=== PATIENT | female | born 1995 | race African-American/Black ===

== ENCOUNTER 2020-06-17 18:09 | Emergency (ER) | payer OTHER ==
--- OUTSIDE RECORDS SUMMARY | 2020-06-17 18:11 | XMS REPORT | Clinical Summary ---
:1995 Author Organization [facility] Dist[facility] ict Address [address] [place] [id number] Care Team Providers Name Role Phone Unavailable Primary Care Provider Unavailable Allergies No Known Allergies Medications Medication Sig Dispensed Refills Start Date End Date Status citalopram (CELEXA) 20 Take 0.5 tablets 30 tablet 1 05/24/2017 Active mg tabletIndications: by mouth daily X 2 Panic attack wks then increase to 1 tab po daily. hydrOXYzine (ATARAX) Take 1 tablet by 30 tablet 0 05/24/2017 Active 25 mg mouth 3 times tabletIndications: daily as needed Panic attack for Anxiety. Active Problems No known active problems Encounters Date Type Specialty Care Team Description 05/29/2020 Office Visit Hector Onofre A Generalized anx iety disorder (Primary Dx); Alcohol use dis order, mild, abuse 05/14/2020 Telephonic Encounter Hector Onofre A General ized anxiety disorder (Primary Dx) 04/18/2020 Telemedicine Hector Onofre A Generalized anx iety disorder (Primary Dx) 04/16/2020 Telephonic Encounter Hector Onofre A No Show after 06/17/2019 Immunizations Name Administration Dates Next Due Influenza Vaccine 10/23/2015 Tdap Tetanus, diphtheria, acellular pertussis Vaccine 2015 Family History Medical History Relation Name Comments Cancer Maternal Aunt multiple aunts, dx'ed in their 50's Relation Name Status Comments Brother Alive Father Alive Maternal Aunt Mother Alive Sister Alive Social History Tobacco Use Types Packs/Day Years Used Date Never Smoker Smokeless Tobacco: Never Used Tobacco Cessation: Counseling Given: No Comments: Avoidance of second-hand smoke during and after Alcohol Use Drinks/Week oz/Week Comments No 0 Standard drinks or equivalent 0.0 Food Insecurity Answer Date Recorded Within the past 12 months, you worried that your food would Never true 05/23/2017 run out before you got money to buy more. Within the past 12 months, the food you bought just didn't N ever true 05/23/2017 last and you didn't have money to get more. Sex Assigned at Date Recorded Not on file Job Start Date Occupation Industry Not on file Not on file Not on file Travel History Travel Start Travel End No recent travel history available. COVID-19 Exposure Response Date Recorded In the last month, have you been in contact with No / Unsure 05/29/2020 8:48 AM CDT someone who was confirmed or suspected to have Coronavirus / COVID-19? Last Filed Vital Signs Not on file Plan of Treatment Date Type Specialty Care Team Description 07/08/2020 Office Visit Psychology Hector Rodriguez [facility] [place] [facility] [address] [phone] Health Maintenance Due Date Last Done Comments Cervical Cancer Scrn (3 Yrs) 2016 IMM Influenza Seasonal May to October (>/= 19 yrs) 05/22/2020 10/23/2015 Results Not on fileafter 06/17/2019 Insurance Payer Benefit Plan Subscriber ID Effective Dates Phone Address Type / Group [place] MED[place] [id number] [facility] xxxxxxxxx 2020-Presjeanie [id number] [place] [address]
--- OUTSIDE RECORDS SUMMARY | 2020-06-17 18:11 | XMS REPORT | Clinical Summary ---
:1995 Author Organization [facility] Address [address] [place] [address] Care Team Providers Name Role Phone Asked, No Pcp Primary Care Provider Unavailable Allergies No Known Active Allergies Medications No known medications Active Problems No known active problems Immunizations Name Administration Dates Next Due Tdap 04/20/2019 Surgical History Surgery Date Site/Laterality Comments NO PAST SURGERIES Medical History Medical History Date Comments Anxiety Family History Medical History Relation Name Comments No Known Problems Father No Known Problems Mother Relation Name Status Comments Father Mother Social History Tobacco Use Types Packs/Day Years Used Date Current Every Day Smoker Cigarettes Smokeless Tobacco: Never Used Comments: 2 cig a day Alcohol Use Drinks/Week oz/Week Comments Yes 7 Shots of liquor 7.0 Sex Assigned at Date Recorded Not on file Last Filed Vital Signs Not on file Plan of Treatment Health Maintenance Due Date Last Done Comments CERVICAL CANCER SCREENING 2016 INFLUENZA VACCINE 03/22/2020 Results Not on fileafter 06/17/2019 Advance Directives For more information, please contact: [phone] 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
--- OUTSIDE RECORDS SUMMARY | 2020-06-17 18:12 | XMS REPORT | Continuity of Care Document ---
:1995 Author Organization [facility] t Address [address] [place] [address] Care Team Providers Name Role Phone Asked, Pcp Primary Care Physician Unavailable Shayla Rodriguez Attending Clinician Payers Payer Name Policy Type Policy Number Effective Date Expiration Date S emmie [place] xxxxxxxxx 2020 [facility] MEDICAIDTP01 00:00:00 TANF [place]RAHAM GRANTxxxxxxxx x2020-Pre [phone] [id number], [place] [address] Problems This patient has no known problems. Allergies, Adverse Reactions, Alerts This patient has no known allergies or adverse reactions. Family History Family Member Diagnosis Comments Start Date Stop Date Source Natural father No Known Problems Keena brian Tenriism Natural mother No Known Problems Keena Elizondo Maternal aunt Cancer [facility] Social History Social Habit Start Date Stop Date Quantity Comments Source History of Cigarette Smoker [facility] tobacco use Sex Assigned At [facility] Exposure to Not sure [facility] SARS-CoV-2 (event) Tobacco use and 2019-04-20 2019-04-[address] [facility] ethodist exposure 00:00:00 00:00:00 Alcohol intake 2019-01-24 2019-01-24 Current [facility] 00:00:00 00:00:00 non-drinker of alcohol (finding) History [facility] Food 2017-05-23 2017-05-23 1 [facility] Worry 00:00:00 00:00:00 History [facility] Food 2017-05-23 2017-05-23 1 [facility] Scarcity 00:00:00 00:00:00 Tobacco Comment 2015-10-17 2015-10-17 Avoidance of [facility] 00:00:00 00:00:00 second-hand smoke during and after Smoking Status Start Date Stop Date Source Current every day smoker 2019-04-20 00:00:00 Keena Spearist Never smoker [facility] Medications Ordered Filled Start Stop Current Ordering Indication Dosage Frequency Signature Comments Components Source Medication Medication Date Date Medication? Clinician (SIG) Name Name citalopram 2016-08 Yes Panic 10mg QD Take 0.5 Torres rris (CELEXA) 20 0-03 attack tablets by [facility] mg tablet 00:00: mouth 00 daily X 2 wks then increase to 1 tab po daily. hydrOXYzine 2016-08 Yes Panic 25mg Take 1 Segundo ris (ATARAX) 25 0-03 attack tablet by H ealth mg tablet 00:00: mouth 3 00 times daily as needed for Anxiety. Immunizations Ordered Immunization Filled Immunization Date Status Commen ts Source Name Name Tdap 2019-04-20 Completed [place] 00:00:00 Tenriism Tdap Tetanus, 2016-01-01 Completed [facility] diphtheria, 00:00:00 acellular pertussis Vaccine Influenza Vaccine 2015-10-23 Completed [facility] 00:00:00 Procedures This patient has no known procedures. Plan of Care Planned Activity Planned Date Details Comments Source Future Scheduled 2020-05-22 IMM Influenza [facility] Test 00:00:00 Seasonal Oct to October (>/= 19 yrs) [code = IMM Influenza Seasonal Oct to October (>/= 19 yrs)] Future Scheduled 2020-03-22 INFLUENZA VACCINE [place] [facility] Test 00:00:00 [code = INFLUENZA VACCINE] Future Scheduled 2016 Screening for [facility]ist Test 00:00:00 malignant neoplasm of cervix (procedure) [code = 261421185] Future Scheduled 2016 Screening for [facility] lt Test 00:00:00 malignant neoplasm of cervix (procedure) [code = 632325571] Encounters Start End Encounter Admission Attending Care Care Encounter Source Date/Time Date/Time Type Type Clinicians Facility Department ID 2017-06-22 2017-06-22 Outpatient [facility] [id number] [address] [place] 00:00:00 00:00:00 Health 2017-05-23 2017-05-23 Outpatient [facility] [id number] 01 [place] 14:26:58 14:26:58 Health 2017-05-23 2017-05-23 Outpatient [facility] [id number] [address] [place] [address] 14:06:02 14:06:02 Health Results This patient has no known results.
--- NOTE | 2020-06-17 19:56 | RAD REPORT ---
EXAM DESCRIPTION: RAD - Chest Single View - 06/17/2020 7:41 pm CLINICAL HISTORY: Congestion;Chest pain;Cough Chest pain. COMPARISON: No comparisons FINDINGS: Portable technique limits examination quality. The lungs are grossly clear. The heart is normal in size. No displaced fractures. IMPRESSION: No acute intrathoracic process suspected.
[2020-06-17] MEDS ORDERED: ALBUTEROL 2.5 MG/3 ML NEB SOL ONE ×2 (19:58→20:36)
[2020-06-17] MEDS ORDERED: METHYLPREDNISOLONE 125 MG INJ ONE (19:58)
[2020-06-17] MEDS ORDERED: IPRATROPIUM BROM 0.5MG/2.5ML ONE (20:36)
--- NOTE | 2020-06-17 21:14 | EDPHYS ---
Physician Documentation [facility] Name: Vu Comer Age: 25 yrs Sex: Female : 1995 Arrival Date: 06/17/2020 Time: 18:15 Bed 20 Private MD: ED Physician Luca Julien HPI: 06/17 20:30 This 25 yrs old Black Female presents to ER via Ambulatory with complaints of Shortness pm1 Of Breath, Chest Tightness. 20:30 The patient or guardian reports cough, with productive sputum, For 5 days. Onset: The pm1 symptoms/episode began/occurred Today with onset of shortness of breath and chest pain with deep breathing and coughing. Associated signs and symptoms: Pertinent positives: Wheezing, Pertinent negatives: ear ache, fever, sore throat. Severity of symptoms: in the emergency department the symptoms are worse. The patient has not recently seen a physician. 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 It has been more than one year since last vaccine. - Social history:: Smoking status: Patient reports the use of cigarette tobacco products, smokes one-half pack cigarettes per day. ROS: 20:30 Constitutional: Negative for fever, chills, and weight loss, Eyes: Negative for injury, pm1 pain, redness, and discharge. 20:30 ENT: Negative for injury, pain, and discharge, Neck: Negative for injury, pain, and swelling. 20:30 Abdomen/GI: Negative for abdominal pain, nausea, vomiting, diarrhea, and constipation, Back: Negative for injury and pain. 20:30 MS/Extremity: Negative for injury and deformity, Skin: Negative for injury, rash, and discoloration. 20:30 Neuro: Negative for headache, weakness, numbness, tingling, and seizure. 20:30 Cardiovascular: Positive for chest pain, Negative for edema, orthopnea, palpitations. 20:30 Respiratory: Positive for cough, shortness of breath, wheezing. Exam: 20:30 Constitutional: This is a well developed, well nourished patient who is awake, alert, pm1 and in no acute distress. Head/Face: Normocephalic, atraumatic. Neck: Trachea midline, no thyromegaly or masses palpated, and no cervical lymphadenopathy. Supple, full range of motion without nuchal rigidity, or vertebral point tenderness. No Meningismus. 20:30 Cardiovascular: Regular rate and rhythm with a normal S1 and S2. No gallops, murmurs, or rubs. Normal PMI, no JVD. No pulse deficits. 20:30 Back: No spinal tenderness. No costovertebral tenderness. Full range of motion. Skin: Warm, dry with normal turgor. Normal color with no rashes, no lesions, and no evidence of cellulitis. MS/ Extremity: Pulses equal, no cyanosis. Neurovascular intact. Full, normal range of motion. 20:30 Chest/axilla: Inspection: normal, Palpation: tenderness, of the mid-sternal area, that totally reproduces the patient's complaints. 20:30 Respiratory: the patient does not display signs of respiratory distress, Breath sounds: wheezing: is heard in the left posterior upper lobe and right posterior upper lobe. 20:30 Neuro: Exam negative for acute changes, Orientation: is normal, Mentation: is normal, Motor: is normal, moves all fours. Vital Signs: 18:36 BP 124 / 77; Pulse 80; Resp 18 S; Temp 97(TE); Pulse Ox 99% on R/A; Weight 78.93 kg ca1 (R); Height 5 ft. 3 in. (160.02 cm) (R); Pain 5/10; 21:20 BP 120 / 70; Pulse 80; Resp 18; Temp 97.5; Pulse Ox 100% on R/A; mg2 18:36 Body Mass Index 30.82 (78.93 kg, 160.02 cm) ca1 MDM: 19:37 Patient medically screened. pm1 20:34 Data reviewed: vital signs. Data interpreted: Pulse oximetry: on room air is 99 %. pm1 Interpretation: normal. 21:12 Counseling: I had a detailed discussion with the patient and/or guardian regarding: the pm1 historical points, exam findings, and any diagnostic results supporting the discharge/admit diagnosis, radiology results, the need for outpatient follow up, to return to the emergency department if symptoms worsen or persist or if there are any questions or concerns that arise at home. 10/27 18:50 Order name: Chest Single View; Complete Time: 20:07 EDMS 06/17 18:40 Order name: EKG; Complete Time: 18:40 ca1 06/17 18:40 Order name: EKG - Nurse/Tech; Complete Time: 18:40 ca1 Administered Medications: 19:56 Drug: Albuterol 2.5 mg Route: Inhalation; mg2 20:24 Follow up: Response: No adverse reaction mg2 19:56 Drug: SOLU-Medrol 125 mg Route: IM; Site: left ventrogluteal; mg2 20:24 Follow up: Response: No adverse reaction mg2 20:23 Drug: Albuterol 2.5 mg Route: Inhalation; mg2 21:00 Follow up: Response: No adverse reaction; Marked relief of symptoms mg2 20:24 Drug: AtroVENT Aerosol 0.5 mg Route: Inhalation; mg2 21:00 Follow up: Response: No adverse reaction; Marked relief of symptoms mg2 Disposition: 06/18 01:18 Co-signature as Attending Physician, Luca Julien MD. nisha Disposition: 06/17/20 21:13 Discharged to Home. Impression: Acute upper respiratory infection, unspecified. - Condition is Stable. - Discharge Instructions: Antibiotic Resistance, Upper Respiratory Infection, Adult. - Prescriptions for Medrol (Brayan) 4 mg Oral Tablets, Dose Pack - take 1 tablet by ORAL route as directed - follow package instructions; 1 packet. Albuterol Sulfate 90 mcg/actuation - inhale 1-2 puff by INHALATION route every 4-6 hours; 1 Inhaler. - Medication Reconciliation Form, Thank You Letter, Antibiotic Education, Prescription Opioid Use form. - Follow up: Emergency Department; When: As needed; Reason: Worsening of condition. Follow up: Private Physician; When: 2 - 3 days; Reason: Recheck today's complaints, Continuance of care, Re-evaluation by your physician. - Problem is new. - Symptoms have improved. Signatures: Dispatcher [employer] EDLuca Chang MD MD pkl Jani Villarreal NP PROSTHETICS LAB TECHNICIAN pm1 Alexander Dennison, RN RN mg2 Gwendolyn Britton RN RN ca1 Corrections: (The following items were deleted from the chart) 06/17 18:50 18:46 Chest Pa And Lat (2 Views)+RAD.[email or web address] [facility]. [facility] 21:26 21:13 06/17/2020 21:13 Discharged to Home. Impression: Acute upper respiratory mg2 infection, unspecified. Condition is Stable. Forms are Medication Reconciliation Form, Thank You Letter, Antibiotic Education, Prescription Opioid Use. Follow up: Emergency Department; When: As needed; Reason: Worsening of condition. Follow up: Private Physician; When: 2 - 3 days; Reason: Recheck today's complaints, Continuance of care, Re-evaluation by your physician. Problem is new. Symptoms have improved. pm1
--- NOTE | 2020-06-17 21:14 | ER ---
Nurse's Notes [facility] Name: Vu Comer Age: 25 yrs Sex: Female : 1995 Arrival Date: 06/17/2020 Time: 18:15 Bed 20 Private MD: Diagnosis: Acute upper respiratory infection, unspecified Presentation: 06/17 18:36 Chief complaint: Patient states: SOB and midsternal chest pain and tightness since ca1 yesterday. CP non-radiating, constant, 5/10. Reports productive and congestion x 5 days. Denies fever. Coronavirus screen: Client denies travel out of the [place] in the last 14 days. congestion, cough unrelated to allergies, shortness of breath, Client presents with at least one sign or symptom that may indicate coronavirus-19. Standard/surgical mask placed on the client. Provider contacted for isolation considerations. The client reports previous COVID testing was negative. Date of collection: June 02, 2020. Ebola Screen: Patient negative for fever greater than or equal to 101.5 degrees Fahrenheit, and additional compatible Ebola Virus Disease symptoms Patient denies exposure to infectious person. Patient denies travel to an Ebola-affected area in the 21 days before illness onset. No symptoms or risks identified at this time. Initial Sepsis Screen: Does the patient meet any 2 criteria? No. Patient's initial sepsis screen is negative. Does the patient have a suspected source of infection? No. Patient's initial sepsis screen is negative. Risk Assessment: Do you want to hurt yourself or someone else? Patient reports no desire to harm self or others. Onset of symptoms was June 17, 2020. 18:36 Method Of Arrival: Ambulatory ca1 18:36 Acuity: TIARRA 3 ca1 Triage Assessment: 20:12 General: Appears in no apparent distress. Respiratory: Onset: The symptoms/episode mg2 began/occurred gradually, the patient has mild shortness of breath. 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 It has been more than one year since last vaccine. - Social history:: Smoking status: Patient reports the use of cigarette tobacco products, smokes one-half pack cigarettes per day. Screenin:11 Abuse screen: Denies threats or abuse. Denies injuries from another. Nutritional mg2 screening: No deficits noted. Tuberculosis screening: No symptoms or risk factors identified. Fall Risk None identified. Assessment: 19:40 General: Appears in no apparent distress. comfortable, Behavior is calm, cooperative. mg2 Pain: Denies pain. Neuro: Level of Consciousness is awake, alert, obeys commands, Oriented to person, place, time, situation. Cardiovascular: Capillary refill < 3 seconds Patient's skin is warm and dry. Respiratory: Airway is patent Respiratory effort is even, unlabored. Respiratory: Reports shortness of breath cough that is. GI: No signs and/or symptoms were reported involving the gastrointestinal system. : No signs and/or symptoms were reported regarding the genitourinary system. EENT: No signs and/or symptoms were reported regarding the EENT system. Derm: Skin is intact, is healthy with good turgor, Skin is pink, warm \T\ dry. normal. Musculoskeletal: Circulation, motion, and sensation intact. Capillary refill < 3 seconds. 19:40 Respiratory: Breath sounds with wheezes in left upper lobe and left lower lobe. mg2 19:40 Cardiovascular: Rhythm is regular. mg2 20:15 Reassessment: Patient appears in no apparent distress at this time. Patient and/or mg2 family updated on plan of care and expected duration. Pain level reassessed. Patient is alert, oriented x 3, equal unlabored respirations, skin warm/dry/pink. 21:15 Reassessment: Patient appears in no apparent distress at this time. Patient states mg2 feeling better. Patient states symptoms have improved. Vital Signs: 18:36 BP 124 / 77; Pulse 80; Resp 18 S; Temp 97(TE); Pulse Ox 99% on R/A; Weight 78.93 kg ca1 (R); Height 5 ft. 3 in. (160.02 cm) (R); Pain 5/10; 21:20 BP 120 / 70; Pulse 80; Resp 18; Temp 97.5; Pulse Ox 100% on R/A; mg2 18:36 Body Mass Index 30.82 (78.93 kg, 160.02 cm) ca1 ED Course: 18:15 Patient arrived in ED. mr 18:38 Triage completed. ca1 18:39 Arm band placed on right wrist. ca1 18:43 EKG completed in triage. Results shown to MD. ca1 19:29 Jani Villarreal NP is PHCP. pm1 19:30 Luca Julien MD is Attending Physician. pm1 19:33 Alexander Dennison, AMADEO is Primary Nurse. mg2 19:42 Chest Single View In Process Unspecified. EDMS 20:12 No provider procedures requiring assistance completed. Patient did not have IV access mg2 during this emergency room visit. 21:20 Patient has correct armband on for positive identification. mg2 Administered Medications: 19:56 Drug: Albuterol 2.5 mg Route: Inhalation; mg2 20:24 Follow up: Response: No adverse reaction mg2 19:56 Drug: SOLU-Medrol 125 mg Route: IM; Site: left ventrogluteal; mg2 20:24 Follow up: Response: No adverse reaction mg2 20:23 Drug: Albuterol 2.5 mg Route: Inhalation; mg2 21:00 Follow up: Response: No adverse reaction; Marked relief of symptoms mg2 20:24 Drug: AtroVENT Aerosol 0.5 mg Route: Inhalation; mg2 21:00 Follow up: Response: No adverse reaction; Marked relief of symptoms mg2 Outcome: 21:13 Discharge ordered by MD. pm1 21:25 Discharged to home ambulatory. mg2 21:25 Condition: stable 21:25 Discharge instructions given to patient, Instructed on discharge instructions, follow up and referral plans. medication usage, Demonstrated understanding of instructions, follow-up care, medications, Prescriptions given X 2. 21:26 Patient left the ED. mg2 Signatures: Dispatcher [employer] EDAZ Judah Damari mr Jani Villarreal, BEATA FRONT DESK WORKER pm1 Alexander Dennison, AMADEO RN mg2 Gwendolyn Britton RN RN ca1
[2020-06-17 21:53] VITALS: BP 124/77; TEMP 97; O2SAT 99
--- NOTE | 2020-06-18 07:20 | EKG ---
Test Date: 2020-06-17 Test Time: 18:47:08 Specifications Checker: NATALY MEASUREMENT RESULTS: Intervals: Rate: 73 TN: 184 QRSD: 80 QT: 378 QTc: 416 [place]: P: 70 TN: 184 QRS: 83 T: 54 INTERPRETIVE STATEMENTS: Normal sinus rhythm with sinus arrhythmia Normal ECG No previous ECG available for comparison Electronically Signed On 06-18-20 07:19:34 CDT by Celestino Weir
== END 2020-06-17 21:26 | disposition home or self-care (01) ==
LOC: ER 18:09
DX: J06.9 Acute upper respiratory infection, unspecified (principal); F17.210 Nicotine dependence, cigarettes, uncomplicated
CPT/HCPCS: 93005; 71045; 96372; 99284; J2930